=== PATIENT | female | born 1945 | race American Indian/Alaskan Native ===

== ENCOUNTER 2016-12-14 14:19 | Emergency (ER) | payer OTHER ==
[~2016-12-14] VITALS: Ht 154.9 cm; Wt 75.8 kg
[2016-12-14] MEDS ORDERED: MEDROL DOSEPAK4 MG OR (14:44)
[2016-12-14] MEDS ORDERED: Z-PAK PO (14:44)
[2016-12-14] MEDS ORDERED: BENICAR5 MG PO (14:45)
[2016-12-14] MEDS ORDERED: MONT10TA PO (14:45)
[2016-12-14 15:02] LABS: PLATELET COUNT 246 K/uL (152-353)
[2016-12-14 17:05] VITALS: BP 143/84; TEMP 97.8
== END 2016-12-14 17:05 | disposition home or self-care (01) ==
LOC: ED 14:19
DX: R05 Cough (principal); J40 Bronchitis, not specified as acute or chronic; I16.0 Hypertensive urgency
CPT/HCPCS: 36415; 85027; 94640; 94664; 99284